=== PATIENT | female | born 1965 | race Caucasian/White ===

== ENCOUNTER 2024-04-26 09:08 | Emergency (ER) | payer MEDICARE ==
[2024-04-26 09:21] VITALS: TEMP 98.2
--- NOTE | 2024-04-26 09:29 | ERPHSYRPT ---
- History of Present Illness Time Seen by Provider: 04/26/24 09:26 Source: patient Exam Limitations: no limitations Patient Subjective Stated Complaint: Weakness Triage Nursing Assessment: Patient brought back to ED per w/c and transferred self to bed. Patient A+O X 3. Patient's skin pink, warm and dry. Patient complains of increased weakness over the past couple of days. Patient states she is also having abdominal pain mid abdomen 10/10 for the past 4 weeks with N/V. Physician History: 58-year-old female presents to our ED for evaluation of of nausea vomiting and generalized weakness for 1 day. Patient also complains of intermittent abdominal pain. Patient reports her pain is periumbilical. Pain is intermitte nt. Pain is rated 10 out of 10 at its worst. Patient states her pain is "a little" at this time. Pain has been intermittent for the past 4 weeks. Patient reports her nausea and vomiting x 1 day. No fever. No trauma no rash no diarrhea no urinary complaints. Patient otherwise feels well. She voices no other complaints or concerns at this time. Portions of this note were created with voice recognition technology. There may be grammatical, spelling, punctuation or sound alike errors Timing/Duration: yesterday Severity: moderate Modifying Factors: Improves With: nothing Associated Symptoms: denies symptoms Allergies/Adverse Reactions: No Known Drug Allergies Allergy (Verified 04/26/24 09:16) Home Medications: Levocetirizine Dihydrochloride 1 tab PO DAILY 11/14/22 [History] Lisinopril 10 mg [Zestril 10 MG] 1 tab PO BID 11/14/22 [History] Simvastatin 10 mg [Zocor 10MG] 1 tab PO HS 11/14/22 [History] Hx Tetanus, Diphtheria Vaccination/Date Given: Yes Hx Influenza Vaccination/Date Given: Yes Hx Pneumococcal Vaccination/Date Given: No Immunizations Up to Date: Yes Travel Risk - International Travel Have you traveled outside of the country in past 3 weeks: No - Emerging Infectious Disease Are you exhibiting symptoms associated with any current EIDs: No - Review of Systems Constitutional: No Symptoms, No Fever, No Chills Eyes: No Symptoms Ears, Nose, & Throat: No Symptoms Respiratory: No Symptoms, No Cough, No Dyspnea Cardiac: No Symptoms, No Chest Pain, No Edema, No Syncope Abdominal/Gastrointestinal: No Symptoms, No Abdominal Pain, No Nausea, No Vomiting, No Diarrhea Genitourinary Symptoms: No Symptoms, No Dysuria Musculoskeletal: No Symptoms, No Back Pain, No Neck Pain Skin: No Symptoms, No Rash Neurological: No Symptoms, No Dizziness, No Focal Weakness, No Sensory Changes Psychological: No Symptoms Endocrine: No Symptoms Hematologic/Lymphatic: No Symptoms Immunological/Allergic: No Symptoms All Other Systems: Reviewed and Negative - Past Medical History Pertinent Past Medical History: Yes Neurological History: No Pertinent History Cardiac History: Myocardial Infarction (DE) Respiratory History: No Pertinent History Endocrine Medical History: No Pertinent History Musculoskeletal History: Osteoarthritis Other Medical History: 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 - Past Surgical History Past Surgical History: No Neuro Surgical History: No Pertinent History Cardiac: No Pertinent History Respiratory: No Pertinent History Gastrointestinal: No Pertinent History Genitourinary: No Pertinent History Musculoskeletal: No Pertinent History Female Surgical History: No Pertinent History - Social History Smoking Status: Never smoker Exposure to second hand smoke: Yes Drug Use: none - Social Determinants of Health Will the patient participate in the screening: Yes Do you worry about a steady place to live?: No Do you have any problems with any of the following?: No known problems In the past 12 months,have you had to go without utilities?: No Transportation Issues: No Has anyone in your support network made you feel unsafe?: No Have you or anyone in your house had to go w/o enough food: No - Nursing Vital Signs Nursing Vital Signs: Initial Vital Signs Temperature 98.2 F 04/26/24 09:16 Pulse Rate 90 04/26/24 09:16 Respiratory Rate 20 04/26/24 09:16 Blood Pressure 132/101 04/26/24 09:16 O2 Sat by Pulse Oximetry 96 04/26/24 09:16 Pain Scale Pain Intensity 5 - Physical Exam General Appearance: no apparent distress, alert, other (BMI 54.7) Eye Exam: PERRL/EOMI, eyes nml inspection Ears, Nose, Throat Exam: normal ENT inspection, moist mucous membranes Neck Exam: normal inspection, non-tender, supple, full range of motion Respiratory Exam: normal breath sounds, lungs clear, airway intact, No respiratory distress Cardiovascular Exam: regular rate/rhythm, normal heart sounds, normal peripheral pulses Gastrointestinal/Abdomen Exam: soft, normal bowel sounds, other (Mild generalized abdominal pain), No tenderness, No mass Back Exam: normal inspection, normal range of motion, No CVA tenderness, No vertebral tenderness Extremity Exam: normal inspection, normal range of motion, pelvis stable, pedal edema Neurologic Exam: alert, oriented x 3, cooperative, normal mood/affect, nml cerebellar function, nml station & gait, sensation nml, No motor deficits Skin Exam: normal color, warm, dry, No rash Lymphatic Exam: No adenopathy SpO2 Interpretation: normal SpO2: 96 O2 Delivery: Room Air - Course Nursing assessment & vital signs reviewed: Yes EKG Interpreted by Me: RATE (153), A-fib, NORMAL AXIS, NORMAL INTERVALS, NORMAL QRS - Radiology Ultrasound Exam Gallbladder Ultrasound: tele radiology report (No acute findings) Ordered Tests: Active Orders 24 hr Category Date Time Status ACO Referral ONCE Care 04/26/24 13:56 Active Adoption Social Worker STAT Care 04/26/24 09:25 Active EKG-ER Only STAT Care 04/26/24 09:24 Active IV Insertion STAT Care 04/26/24 09:24 Active Pulse Oximetry (ED) STAT Care 04/26/24 09:24 Active ABDOMEN AND PELVIS W/0 CONTRAS [CT] Stat Exams 04/26/24 09:31 Completed GALLBLADDER [US] Stat Exams 04/26/24 12:02 Completed CBC W DIFF Stat Lab 04/26/24 09:39 Completed CMP Stat Lab 04/26/24 09:39 Completed CULTURE,URINE Stat Lab 04/26/24 10:19 Received LIPASE Stat Lab 04/26/24 09:39 Completed NT PRO BNPII Stat Lab 04/26/24 09:39 Completed TROPONIN Q4H Lab 04/26/24 09:39 Completed TROPONIN Q4H Lab 04/26/24 13:30 Completed TROPONIN Q4H Lab 04/26/24 17:30 Ordered UA W/RFX UR CULTURE Stat Lab 04/26/24 10:19 Completed Medication Summary Generic Name Dose Route Start Last Admin Trade Name Freq PRN Reason Stop Dose Admin Diltiazem HCl 100 mls @ 5 mls/hr 04/26/24 09:30 04/26/24 10:01 Cardizem Drip 100 Mg/100 Ml D5w IV 05/26/24 09:29 5 mg/hr .Q20H PRN 5 mls/hr HEART RATE/ A-FIB Administration Protocol 5 MG/HR Discontinued Medications Generic Name Dose Route Start Last Admin Trade Name Mpq PRN Reason Stop Dose Admin Diltiazem HCl 10 mg 04/26/24 09:30 04/26/24 09:38 Diltiazem Hcl Iv 5 Mg/Ml Vial IV 04/26/24 09:31 10 mg STAT ONE Administration Diltiazem HCl Confirm 04/26/24 09:38 Diltiazem Hcl Iv 5 Mg/Ml Vial Administered 04/26/24 09:39 Dose 50 mg IV .STK-MED ONE Enoxaparin Sodium 80 mg 04/26/24 14:09 Enoxaparin Sodium 80 Mg/0.8 Ml Syringe SQ 04/26/24 14:10 1XONLY ONE Furosemide 20 mg 04/26/24 12:04 Furosemide 20 Mg/Vial IV 04/26/24 12:05 ONCE STA Sodium Chloride 1,000 mls @ 999 mls/hr 04/26/24 09:24 04/26/24 10:58 Sodium Chloride 0.9% 1000 Ml IV 04/26/24 10:24 Infused .Q1H1M STA Infusion Sodium Chloride Confirm 04/26/24 09:30 Sodium Chloride 0.9% 1000 Ml Administered 04/26/24 09:31 Dose 1,000 mls @ ud .ROUTE .STK-MED ONE Ceftriaxone Sodium 1 gm in 100 mls @ 200 mls/hr 04/26/24 12:01 04/26/24 13:57 Rocephin 1 Gm / 100 Ml Nacl IV 04/26/24 12:30 Infused STAT ONE Infusion Ceftriaxone Sodium Confirm 04/26/24 13:10 Rocephin 1 Gm / 100 Ml Nacl Administered 04/26/24 13:11 Dose 1 gm in 100 mls @ ud IV .STK-MED ONE Lab/Rad Data: Laboratory Result Diagrams 04/26/24 09:39 04/26/24 09:39 Laboratory Results 04/26/24 04/26/24 04/26/24 Range/Units 13:30 12:20 10:19 WBC (3.98-10.04) x10^3/uL RBC (3.93-5.22) x10^6/uL Hgb (11.2-15.7) g/dL Hct (34.1-44.9) % MCV (79.4-94.8) fL MCH (25.6-32.2) pg MCHC (32.2-35.5) g/dL RDW (11.7-14.4) % Plt Count (182-369) x10^3/uL MPV (9.4-12.3) fL Gran % (34.0-71.1) % Immature Gran % (Auto) (0.001-0.429) % Nucleat RBC Rel Count (0.00-0.2) % Eos # (Auto) (0.04-0.36) x10^3/uL Immature Gran # (Auto) (0.001-0.031) x10^3u/L Absolute Lymphs (auto) (1.18-3.74) x10^3/uL Absolute Monos (auto) (0.24-0.86) x10^3/uL Absolute Nucleated RBC (0.00-0.012) x10^3u/L Lymphocytes % (19.3-51.7) % Monocytes % (4.7-12.5) % Eosinophils % (0.7-5.8) % Basophils % (0.1-1.2) % Absolute Granulocytes (1.56-6.13) x10^3/uL Basophils # (0.01-0.08) x10^3/uL Sodium (135-145) mmol/L Potassium (3.5-5.1) mmol/L Chloride (98-107) mmol/L Carbon Dioxide (22-30) mmol/L Anion Gap (5-15) MEQ/L BUN (7-17) mg/dL Creatinine (0.52-1.04) mg/dL Estimated GFR ML/MIN Glucose (74-106) mg/dL Calcium (8.4-10.2) mg/dL Total Bilirubin (0.2-1.3) mg/dL AST (14-36) U/L ALT (0-35) U/L Alkaline Phosphatase (38-126) U/L Troponin I 0.014 (0.000-0.033) ng/mL NT-Pro-B Natriuret Pep (<300) pg/mL Serum Total Protein (6.3-8.2) g/dL Albumin (3.5-5.0) g/dL Lipase (23-300) U/L Urine Color [place] A (Yellow) Urine Appearance Turbid A (Clear) Urine pH 5.0 (4.6-8.0) Ur Specific [place] 1.025 (1.005-1.030) Urine Protein 300 A (Negative) Urine Glucose (UA) Negative (Negative) mg/dL Urine Ketones Negative (Negative) Urine Blood Trace (Negative) Urine Nitrite Positive A (Negative) Urine Bilirubin Moderate A (Negative) Urine Urobilinogen 2.0 A (0.2) mg/dL Ur Leukocyte Esterase Small A (Negative) U Hyaline Cast (Auto) >50 A (0-2) /LPF Urine Microscopic RBC 3-5 (0-5) /HPF Urine Microscopic WBC 6-10 A (0-5) /HPF Ur Epithelial Cells Moderate A (None Seen) /HPF Urine Bacteria Moderate A (None Seen) /HPF Urine Culture Reflexed YES (NO) Digoxin (0.8-1.9) ng/mL Influenza Type A Ag NEGATIVE (NEGATIVE) Influenza Type B Ag NEGATIVE (NEGATIVE) RSV (PCR) NEGATIVE (NEGATIVE) SARS-CoV-2 (PCR) NEGATIVE (NEGATIVE) 04/26/24 04/26/24 04/26/24 Range/Units 09:39 09:39 09:39 WBC (3.98-10.04) x10^3/uL RBC (3.93-5.22) x10^6/uL Hgb (11.2-15.7) g/dL Hct (34.1-44.9) % MCV (79.4-94.8) fL MCH (25.6-32.2) pg MCHC (32.2-35.5) g/dL RDW (11.7-14.4) % Plt Count (182-369) x10^3/uL MPV (9.4-12.3) fL Gran % (34.0-71.1) % Immature Gran % (Auto) (0.001-0.429) % Nucleat RBC Rel Count (0.00-0.2) % Eos # (Auto) (0.04-0.36) x10^3/uL Immature Gran # (Auto) (0.001-0.031) x10^3u/L Absolute Lymphs (auto) (1.18-3.74) x10^3/uL Absolute Monos (auto) (0.24-0.86) x10^3/uL Absolute Nucleated RBC (0.00-0.012) x10^3u/L Lymphocytes % (19.3-51.7) % Monocytes % (4.7-12.5) % Eosinophils % (0.7-5.8) % Basophils % (0.1-1.2) % Absolute Granulocytes (1.56-6.13) x10^3/uL Basophils # (0.01-0.08) x10^3/uL Sodium 140 (135-145) mmol/L Potassium 3.5 (3.5-5.1) mmol/L Chloride 108 H (98-107) mmol/L Carbon Dioxide 17 L (22-30) mmol/L Anion Gap 19.4 H (5-15) MEQ/L BUN 11 (7-17) mg/dL Creatinine 0.94 (0.52-1.04) mg/dL Estimated GFR 70.8 ML/MIN Glucose 119 H (74-106) mg/dL Calcium 9.1 (8.4-10.2) mg/dL Total Bilirubin 4.40 H (0.2-1.3) mg/dL AST 71 H (14-36) U/L ALT 39 H (0-35) U/L Alkaline Phosphatase 67 (38-126) U/L Troponin I 0.012 (0.000-0.033) ng/mL NT-Pro-B Natriuret Pep 62155 (<300) pg/mL Serum Total Protein 7.2 (6.3-8.2) g/dL Albumin 3.8 (3.5-5.0) g/dL Lipase 17 L (23-300) U/L Urine Color (Yellow) Urine Appearance (Clear) Urine pH (4.6-8.0) Ur Specific [place] (1.005-1.030) Urine Protein (Negative) Urine Glucose (UA) (Negative) mg/dL Urine Ketones (Negative) Urine Blood (Negative) Urine Nitrite (Negative) Urine Bilirubin (Negative) Urine Urobilinogen (0.2) mg/dL Ur Leukocyte Esterase (Negative) U Hyaline Cast (Auto) (0-2) /LPF Urine Microscopic RBC (0-5) /HPF Urine Microscopic WBC (0-5) /HPF Ur Epithelial Cells (None Seen) /HPF Urine Bacteria (None Seen) /HPF Urine Culture Reflexed (NO) Digoxin < 0.4 L (0.8-1.9) ng/mL Influenza Type A Ag (NEGATIVE) Influenza Type B Ag (NEGATIVE) RSV (PCR) (NEGATIVE) SARS-CoV-2 (PCR) (NEGATIVE) 04/26/24 Range/Units 09:39 WBC 10.7 H (3.98-10.04) x10^3/uL RBC 5.03 (3.93-5.22) x10^6/uL Hgb 13.7 (11.2-15.7) g/dL Hct 42.0 (34.1-44.9) % MCV 83.5 (79.4-94.8) fL MCH 27.2 (25.6-32.2) pg MCHC 32.6 (32.2-35.5) g/dL RDW 16.6 H (11.7-14.4) % Plt Count 345 (182-369) x10^3/uL MPV 11.7 (9.4-12.3) fL Gran % 67.0 (34.0-71.1) % Immature Gran % (Auto) 0.4 (0.001-0.429) % Nucleat RBC Rel Count 0.0 (0.00-0.2) % Eos # (Auto) 0.08 (0.04-0.36) x10^3/uL Immature Gran # (Auto) 0.04 H (0.001-0.031) x10^3u/L Absolute Lymphs (auto) 2.36 (1.18-3.74) x10^3/uL Absolute Monos (auto) 0.97 H (0.24-0.86) x10^3/uL Absolute Nucleated RBC 0.00 (0.00-0.012) x10^3u/L Lymphocytes % 22.1 (19.3-51.7) % Monocytes % 9.1 (4.7-12.5) % Eosinophils % 0.7 (0.7-5.8) % Basophils % 0.7 (0.1-1.2) % Absolute Granulocytes 7.16 H (1.56-6.13) x10^3/uL Basophils # 0.08 (0.01-0.08) x10^3/uL Sodium (135-145) mmol/L Potassium (3.5-5.1) mmol/L Chloride (98-107) mmol/L Carbon Dioxide (22-30) mmol/L Anion Gap (5-15) MEQ/L BUN (7-17) mg/dL Creatinine (0.52-1.04) mg/dL Estimated GFR ML/MIN Glucose (74-106) mg/dL Calcium (8.4-10.2) mg/dL Total Bilirubin (0.2-1.3) mg/dL AST (14-36) U/L ALT (0-35) U/L Alkaline Phosphatase (38-126) U/L Troponin I (0.000-0.033) ng/mL NT-Pro-B Natriuret Pep (<300) pg/mL Serum Total Protein (6.3-8.2) g/dL Albumin (3.5-5.0) g/dL Lipase (23-300) U/L Urine Color (Yellow) Urine Appearance (Clear) Urine pH (4.6-8.0) Ur Specific [place] (1.005-1.030) Urine Protein (Negative) Urine Glucose (UA) (Negative) mg/dL Urine Ketones (Negative) Urine Blood (Negative) Urine Nitrite (Negative) Urine Bilirubin (Negative) Urine Urobilinogen (0.2) mg/dL Ur Leukocyte Esterase (Negative) U Hyaline Cast (Auto) (0-2) /LPF Urine Microscopic RBC (0-5) /HPF Urine Microscopic WBC (0-5) /HPF Ur Epithelial Cells (None Seen) /HPF Urine Bacteria (None Seen) /HPF Urine Culture Reflexed (NO) Digoxin (0.8-1.9) ng/mL Influenza Type A Ag (NEGATIVE) Influenza Type B Ag (NEGATIVE) RSV (PCR) (NEGATIVE) SARS-CoV-2 (PCR) (NEGATIVE) - Progress Progress: improved Progress Note: 04/26/24 12:09 No need for anticoagulation patient currently on digoxin and Xarelto. Dig level ordered. This is now known as we just received patient's medication list 04/26/24 14:10 Patient has not taken her Xarelto unknown amount of time. Patient received Lovenox SQ 04/26/24 14:11 58-year-old female presents to our ED for evaluation of some abdominal pain, nausea and vomiting. CT abdomen pelvis show incidental cardiomegaly, pulmonary congestion anasarca. BNP 12,000. Lasix administered. EKG reveals A-fib with RVR. Cardizem drip initiated. UA significant for urinary tract infection. We do not have an ICU bed available. We contacted [facility]. I spoke to Dr. Hathaway ER physician at [facility] who accepts transfer at 2:08 PM. Plan of care discussed with patient and mother who is at the bedside. They agree to transfer to [facility] for further evaluation and treatment. Portions of this note were created with voice recognition technology. There may be grammatical, spelling, punctuation or sound alike errors Complexity of problem addressed is moderate acute complicated. No critical care time. Complex of data reviewed and analyzed is extensive. Test ordered chest reviewed results analyzed and correlated clinically with history and physical exam. Risk of complication and or risk of morbidity/mortality of patient management is high. Patient requires transfer to higher level of care. Vital stable. Time spent to transfer patient is approximately 15 minutes. Plan of care established for shared decision making. No social determinants of health present to impede follow-up. Portions of this note were created with voice recognition technology. There may be grammatical, spelling, punctuation or sound alike errors 04/26/24 14:13 04/26/24 14:14 Counseled pt/family regarding: lab results, diagnosis - Departure Departure Disposition: Home Clinical Impression: Nausea and vomiting, Atrial fibrillation with RVR, UTI (urinary tract infection), Total bilirubin, elevated, Elevated brain natriuretic peptide (BNP) level, Cardiomegaly, CHF (congestive heart failure), Noncompliance with medication regimen, Anasarca Condition: Stable Critical Care Time: No Referrals: ADDIE JUAREZ [Primary Care Provider] - Follow up/PCP as directed Instructions: Heart Failure
[2024-04-26] MEDS ORDERED: Sodium Chloride 0.9% 1000 ML 1,000 ML ONE (09:30)
[2024-04-26] MEDS: Sodium Chloride 0.9% 1000 ML 1,000 ML IV STA (09:31)
[2024-04-26] MEDS: Cardizem IV 50 MG/10 ML IV ONE (09:38)
[2024-04-26] MEDS ORDERED: Cardizem IV 50 MG/10 ML IV ONE (09:38)
[2024-04-26 09:41] LABS: Absolute Neutrophil Ct (ANC) 7.16 x10^3/uL (1.56-6.13); BASOPHIL % 0.7 % (0.1-1.2); Basophil (Absolute #) 0.08 x10^3/uL (0.01-0.08); Eosinophil % 0.7 % (0.7-5.8); Eosinophil (Absolute #) 0.08 x10^3/uL (0.04-0.36); Hemoglobin 13.7 g/dL (11.2-15.7); IMMATURE GRAN # 0.04 x10^3u/L (0.001-0.031); IMMATURE GRAN % 0.4 % (0.001-0.429); Lymphocyte (Absolute #) 2.36 x10^3/uL (1.18-3.74); Lymphocytes % 22.1 % (19.3-51.7); Mean Cell Volume 83.5 fL (79.4-94.8); Mean Corpuscular Hemoglobin 27.2 pg (25.6-32.2); Mean Corpuscular Hgb Concent. 32.6 g/dL (32.2-35.5); Mean Platelet Volume 11.7 fL (9.4-12.3); Monocyte (Absolute #) 0.97 x10^3/uL (0.24-0.86); Monocytes % 9.1 % (4.7-12.5); Platelet Count 345 x10^3/uL (182-369); Red Blood Count 5.03 x10^6/uL (3.93-5.22); Red Cell Distribution Width 16.6 % (11.7-14.4); White Blood Count 10.7 x10^3/uL (3.98-10.04)
[2024-04-26] MEDS ORDERED: CARDIZEM DRIP 100 MG/100 ML D5W 100 ML IV ONE (09:41)
[2024-04-26] MEDS: CARDIZEM DRIP 100 MG/100 ML D5W 100 ML IV PRN (10:01)
[2024-04-26 11:14] LABS: Appearance Turbid (Clear); Bilirubin Moderate (Negative); Blood Trace (Negative); Epithelial Cells Moderate /HPF (None Seen); Glucose, Urine Negative (Negative); Hyaline Casts >50 /LPF (0-2); Ketones Negative (Negative); Leukocyte Esterase Small (Negative); Nitrite Positive (Negative); Protein,Urine Dip 300 (Negative); Specific Gravity 1.025 (1.005-1.030)
[2024-04-26 11:17] LABS: Bacteria Moderate /HPF (None Seen)
--- NOTE | 2024-04-26 11:28 | XRAY ---
Indication: Pain. Multiple contiguous axial images obtained through the abdomen and pelvis without contrast. Comparison: November 14, 2022 Lung bases again demonstrates minimal dependent atelectasis. Stable 7 mm right mid lung noncalcified nodule, probably benign. Heart remains enlarged. Mild diffuse respiration artifact. New mild diffuse anasarca. Noncontrasted stomach and bowel loops appear nonobstructed. Appendix not visualized. Again diffuse fatty liver. No free fluid/air. Remaining liver, gallbladder, pancreas, spleen, adrenal glands, kidneys, ureters, bladder, uterus, and aorta are unremarkable for noncontrast exam. Osseous structures intact. Impression: 1. Respiration artifact. 2. Again cardiomegaly with new diffuse anasarca. Rule out mild/early CHF versus fluid overload. 3. Stable right middle lobe probable benign noncalcified micronodule and fatty liver. 4. Remaining CT abdomen/pelvis without contrast exam is grossly negative.
[2024-04-26 11:33] LABS: ALBUMIN 3.8 g/dL (3.5-5.0); ANION GAP 19.4 MEQ/L (5-15); BILIRUBIN,TOTAL 4.4 mg/dL (0.2-1.3); Calcium 9.1 mg/dL (8.4-10.2); Creatinine 1 0.94 mg/dL (0.52-1.04); EST GLOMERULAR FILTRATION RATE 70.8 ML/MIN; Potassium 3.5 mmol/L (3.5-5.1); Total Protein 7.2 g/dL (6.3-8.2)
[2024-04-26 13:02] LABS: INFLUENZA A NEGATIVE (NEGATIVE); INFLUENZA B NEGATIVE (NEGATIVE); RESPIRATORY SYNCTIAL VIRUS NEGATIVE (NEGATIVE); SARS-CoV-2 Xpert Express NEGATIVE (NEGATIVE)
--- NOTE | 2024-04-26 13:02 | XRAY ---
Indication: Pain. Two-dimensional gallbladder sonogram performed. Comparison: None Sonogram was performed upright as patient refused lying for exam. Images limited. Pancreas obscured due to overlying bowel gas. Visualized gallbladder normally distended without gallstones, wall thickening, or pericholecystic fluid or common bile duct measures 2.1 mm. Right kidney measures 8.4 x 4.0 x 3.9 cm and sonographically unremarkable. Impression: Limited sonogram as detailed. Nonvisualization pancreas. Remaining gallbladder sonogram is grossly negative.
[2024-04-26] MEDS ORDERED: ROCEPHIN 1 GM / 100 ML NaCl 1 GM/100 ML IVPB IV ONE (13:10)
[2024-04-26] MEDS: ROCEPHIN 1 GM / 100 ML NaCl 1 GM/100 ML IVPB IV ONE (13:12)
[2024-04-26 14:06] VITALS: RESP 22
[2024-04-26] MEDS ORDERED: Lasix 20 MG/2 ML ONE (15:05)
[2024-04-26] MEDS ORDERED: ENOXAPARIN SODIUM SQ ONE (15:06)
[2024-04-26] MEDS: ENOXAPARIN SODIUM SQ ONE (15:08)
[2024-04-26] MEDS: Lasix 20 MG/2 ML IV STA (15:08)
[2024-04-26 15:11] VITALS: BP 125/105; PULSE 103; O2SAT 99
== END 2024-04-26 15:51 | disposition short-term general hospital (02) ==
LOC: ED 09:08
DX: R11.2 Nausea with vomiting, unspecified (principal); I48.20 Chronic atrial fibrillation, unspecified; N39.0 Urinary tract infection, site not specified; E80.6 Other disorders of bilirubin metabolism; R79.89 Other specified abnormal findings of blood chemistry; I51.7 Cardiomegaly; I50.9 Heart failure, unspecified; Z91.148 Patient's other noncompliance with medication regimen for other reason; R60.1 Generalized edema; R10.33 Periumbilical pain; Z79.899 Other long term (current) drug therapy
CPT/HCPCS: 0241U; 36415; 74176; 76705; 80053; 80162; 81001; 83690; 83880; 84484; 85025; 87077; 87086; 87186; 93005; 93041; 94760; 96361; 96365; 96375; 99291; 96374; 99285; J0696; J1650; J1940

== ENCOUNTER 2024-12-25 21:04 | Emergency (ER) | payer MEDICARE ==
[2024-12-25 21:35] LABS: BASOPHIL % 0.4 % (0.1-1.2); Basophil (Absolute #) 0.08 x10^3/uL (0.01-0.08); Eosinophil (Absolute #) 0.01 x10^3/uL (0.04-0.36); Hematocrit 45.5 % (34.1-44.9); Hemoglobin 15.3 g/dL (11.2-15.7); IMMATURE GRAN # 0.63 x10^3u/L (0.001-0.031); IMMATURE GRAN % 3.0 % (0.001-0.429); Lymphocyte (Absolute #) 0.98 x10^3/uL (1.18-3.74); Mean Corpuscular Hemoglobin 28.3 pg (25.6-32.2); Mean Corpuscular Hgb Concent. 33.6 g/dL (32.2-35.5); Monocyte (Absolute #) 1.62 x10^3/uL (0.24-0.86); NUCLEATED RBC # 0.00 x10^3u/L (0.00-0.012); NUCLEATED RBC % 0.0 % (0.00-0.2); Platelet Count 91 x10^3/uL (182-369); Red Blood Count 5.41 x10^6/uL (3.93-5.22); White Blood Count 20.9 x10^3/uL (3.98-10.04)
[2024-12-25 21:50] LABS: CK-Creatinine Phosphokinase 272.0 U/L (30-135); Calcium 8.6 mg/dL (8.4-10.2); Creatinine 1 4.86 mg/dL (0.52-1.04); EST GLOMERULAR FILTRATION RATE 9.8 ML/MIN; Glucose 174.0 mg/dL (74-106); Potassium 4.1 mmol/L (3.5-5.1); SGOT/AST 46.0 U/L (14-36); SGPT/ALT 29.0 U/L (0-35); Total Protein 7.3 g/dL (6.3-8.2)
[2024-12-25 21:57] LABS: Carbon Dioxide 14.0 mmol/L (22-30)
[2024-12-25 22:02] LABS: NT PRO BNPII 2060.0 pg/mL (<300)
[2024-12-25] MEDS ORDERED: PIPERACILLIN/TAZOBACTAM IV ONE (22:12)
[2024-12-25 22:26] LABS: TROPONIN 0.037 ng/mL (0.000-0.033)
--- NOTE | 2024-12-25 22:33 | ERPHSYRPT ---
- History of Present Illness Time Seen by Provider: 12/25/24 21:15 Source: patient Exam Limitations: other Patient Subjective Stated Complaint: "I fell and my foot hurts. I've been sick today and having diarrhea". Triage Nursing Assessment: Pt presents to ER by ambulance after experiencing a reported possible syncopal episode while having a diarrheal bowel movement. Syncope was not witnessed and pt does not quite recall what happened. Pt states she has had diarrhea today, pt's mother states she has had flu-like symptoms since Thursday. Pt has some severe skin issues, erythema, excoriation, sloughing noted to the face, under breasts, and in perineum and gluteal folds with some oozing blood noted in gluteal region. Pt has some subcutaneous bubbling on upper chest. Mother states she normally does not have red skin but she started to notice this on Thursday. Some discoloration noted to upper extremities as well. Pt is alert and oriented x 3. Respirations are easy and unlabored. Lung sounds clear and equal. States has had occasional dry cough. Complaining of 10/10 pain in right ankle. Ankle appears swollen with some deformity and tenderness. Physician History: Patient is here with syncopal episode after having a bowel movement earlier today. Patient has had diarrhea for the past 3 to 4 days. Patient does have a mental handicap and is not able to tell us the entire story. Also obtained history from mom and sister. Patient was having diarrhea today and had a syncopal episode. Flulike symptoms for the past 3 to 4 days as above. Patient complaining of right ankle pain. Patient does have erythema and excoriation around face, breast, perineum area. Some oozing wounds. However, no signs of necrotizing fasciitis. Per the mom this has been going on for a long time. And is not new with the illness. Patient mostly complaining of 10 out of 10 right ankle pain. Allergies/Adverse Reactions: No Known Drug Allergies Allergy (Verified 12/25/24 21:13) Home Medications: Simvastatin 10 mg [Zocor 10MG] 1 tab PO HS 11/14/22 [History] Amiodarone HCl 200 mg [Cordarone 200 MG] 200 mg PO DAILY 12/25/24 [History] Digoxin 125 mcg PO DAILY 12/25/24 [History] Furosemide 20 mg [Lasix 20 mg] 20 mg PO BID 12/25/24 [History] Levocetirizine Dihydrochloride 5 mg PO DAILY 12/25/24 [History] Metoprolol Succinate 25 mg Xl* [Toprol-Xl 25MG Tablets] 25 mg PO DAILY 12/25/24 [History] Potassium Citrate [Potassium Citrate ER] 10 meq PO DAILY 12/25/24 [History] Rivaroxaban 10 mg Tablet [Xarelto 10 mg Tablet] 20 mg PO HS 12/25/24 [History] Sacubitril/Valsartan [Entresto 24 mg-26 mg Tablet] 1 each PO BID 12/25/24 [History] Hx Tetanus, Diphtheria Vaccination/Date Given: Yes Hx Influenza Vaccination/Date Given: Yes Hx Pneumococcal Vaccination/Date Given: No Immunizations Up to Date: No Travel Risk - International Travel Have you traveled outside of the country in past 3 weeks: No - Emerging Infectious Disease Are you exhibiting symptoms associated with any current EIDs: No - Review of Systems All Other Systems: Unable due to condition - Past Medical History Pertinent Past Medical History: Yes Neurological History: No Pertinent History ENT History: No Pertinent History Cardiac History: Arrhythmia, Congestive Heart Failure, Myocardial Infarction (NH) Respiratory History: No Pertinent History Endocrine Medical History: Diabetes Type II Musculoskeletal History: Osteoarthritis GI Medical History: No Pertinent History History: No Pertinent History Psycho-Social History: No Pertinent History Female Reproductive Disorders: No Pertinent History 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 - Past Surgical History Past Surgical History: Yes Neuro Surgical History: No Pertinent History Cardiac: Cardiac Catheterization, Cardiac Stent, Pacemaker Respiratory: No Pertinent History Gastrointestinal: No Pertinent History Genitourinary: No Pertinent History Musculoskeletal: No Pertinent History Female Surgical History: No Pertinent History - Social History Smoking Status: Never smoker Exposure to second hand smoke: No Drug Use: none - Social Determinants of Health Will the patient participate in the screening: Yes Do you worry about a steady place to live?: No Do you have any problems with any of the following?: No known problems In the past 12 months,have you had to go without utilities?: No Transportation Issues: No Has anyone in your support network made you feel unsafe?: No Have you or anyone in your house had to go w/o enough food: No - Nursing Vital Signs Nursing Vital Signs: Initial Vital Signs Temperature 97.7 F 12/25/24 21:12 Pulse Rate 76 12/25/24 21:12 Respiratory Rate 22 12/25/24 21:12 Blood Pressure 93/32 12/25/24 21:12 O2 Sat by Pulse Oximetry 92 L 12/25/24 21:12 Pain Scale Pain Intensity 7 - Physical Exam SpO2 Interpretation: normal SpO2: 92 Comments: 12/25/24 22:29 Physical Exam Vitals signs and nursing note reviewed. Constitutional: Appearance: Patient is well-developed. HENT: Head: Normocephalic and atraumatic. Eyes: Conjunctiva/sclera: Conjunctivae normal. Neck: Trachea: No tracheal deviation. Cardiovascular: Rate and Rhythm: Normal rate. Pulmonary: Effort: Pulmonary effort is normal. No respiratory distress. Abdominal: Palpations: Abdomen is soft. Musculoskeletal: General: Right ankle tenderness, swelling, neurovascularly intact, 2+ pulses, 2+ cap refill Skin: General: Skin is warm and dry. Facial redness, skin excoriations, Neurological: Mental Status: Patient is alert and oriented to person, place, and time, behavior normal. Rectal exam performed with bedside nurse, Isabel Has severe excoriations over bilateral gluteal clefts, internal rectal exam was performed given some blood around the gluteal cleft. However no gross blood on insertion of digital rectal exam. No anal fissures, no hemorrhoids. - Course Nursing assessment & vital signs reviewed: Yes EKG Interpreted by Me: Sinus Rhythm (EKG is sinus rhythm, rate of 76, OK interval 211, QRS 111, QTc is 495, no STEMI or other ST changes) Ordered Tests: Active Orders 24 hr Category Date Time Status Document Imaging Manager STAT Care 12/25/24 21:18 Active EKG-ER Only STAT Care 12/25/24 21:18 Active IV Insertion STAT Care 12/25/24 21:18 Active ABDOMEN AND PELVIS W/0 CONTRAS [CT] Stat Exams 12/25/24 22:04 Completed ANKLE (3 VIEWS) Stat Exams 12/25/24 22:03 Completed CHEST WITHOUT CONTRAST [CT] Stat Exams 12/25/24 22:04 Completed HEAD WITHOUT CONTRAST [CT] Stat Exams 12/25/24 21:19 Completed BLOOD CULTURE Stat Lab 12/25/24 00:44 Received CBC W DIFF Stat Lab 12/25/24 21:29 Completed CK-Creatinine Phosphokinase Stat Lab 12/25/24 21:29 Completed CMP Stat Lab 12/25/24 21:29 Completed CULTURE,URINE Stat Lab 12/26/24 00:26 Received Lactic Acid Stat Lab 12/26/24 00:00 Completed Lactic Acid Stat Lab 12/26/24 00:47 Completed NT PRO BNPII Stat Lab 12/25/24 21:29 Completed Occult Blood-Fecal Screen (Diagnostic) [OB-FECAL SCREEN Lab 12/25/24 22:31 Completed ] Stat POCT GLUCOSE Stat Lab 12/25/24 21:24 Completed TROPONIN Q4H Lab 12/25/24 21:29 Completed TROPONIN Q4H Lab 12/26/24 00:44 Received TROPONIN Q4H Lab 12/26/24 05:30 Ordered UA W/RFX UR CULTURE Stat Lab 12/26/24 00:26 Completed Medication Summary Generic Name Dose Route Start Last Admin Trade Name Freq PRN Reason Stop Dose Admin Norepinephrine/Dextrose 8 mg in 250 mls @ 15 mls/hr 12/25/24 23:00 12/26/24 01:20 Norepinephrine 8 Mg/250 Ml-D5w IV 01/24/25 22:59 10 mcg/min .[id number] PRN 18.75 mls/hr HYPOTENSION Titration Protocol 8 MCG/MIN Discontinued Medications Generic Name Dose Route Start Last Admin Trade Name Freq PRN Reason Stop Dose Admin Acetaminophen 1,000 mg 12/25/24 23:44 12/25/24 23:45 Acetaminophen 500 Mg Tablet PO 12/25/24 23:45 1,000 mg STAT STA Administration Acetaminophen Confirm 12/25/24 23:45 Acetaminophen 500 Mg Tablet Administered 12/25/24 23:46 Dose 1,000 mg .ROUTE .STK-MED ONE Piperacillin Sod/Tazobactam 100 mls @ 200 mls/hr 12/25/24 21:50 12/25/24 22:55 Sod 4.5 gm/ Sodium Chloride IV 12/25/24 22:19 Infused STAT STA Infusion Sodium Chloride 1,000 mls @ 999 mls/hr 12/25/24 22:03 12/25/24 23:08 Sodium Chloride 0.9% 1000 Ml IV 12/25/24 23:03 Infused .Q1H1M STA Infusion Sodium Chloride Confirm 12/25/24 22:04 Sodium Chloride 0.9% 1000 Ml Administered 12/25/24 22:05 Dose 1,000 mls @ ud .ROUTE .STK-MED ONE Sodium Chloride Confirm 12/25/24 22:13 Sodium Chloride 0.9% Administered 12/25/24 22:14 Dose 100 mls @ ud .ROUTE .STK-MED ONE Sodium Chloride 1,000 mls @ 999 mls/hr 12/25/24 23:26 12/26/24 00:39 Sodium Chloride 0.9% 1000 Ml IV 12/26/24 00:26 Infused .Q1H1M STA Infusion Sodium Chloride Confirm 12/25/24 23:39 Sodium Chloride 0.9% 1000 Ml Administered 12/25/24 23:40 Dose 1,000 mls @ ud .ROUTE .STK-MED ONE Piperacillin Sod/Tazobactam Sod Confirm 12/25/24 22:12 Piperacillin/Tazobactam Sodium 4.5 Gm Vial Administered 12/25/24 22:13 Dose 4.5 gm IV .STK-MED ONE Lab/Rad Data: Laboratory Result Diagrams 12/25/24 21:29 12/25/24 21:29 Laboratory Results 12/26/24 12/26/24 12/26/24 Range/Units 00:47 00:26 00:00 WBC (3.98-10.04) x10^3/uL RBC (3.93-5.22) x10^6/uL Hgb (11.2-15.7) g/dL Hct (34.1-44.9) % MCV (79.4-94.8) fL MCH (25.6-32.2) pg MCHC (32.2-35.5) g/dL RDW (11.7-14.4) % Plt Count (182-369) x10^3/uL MPV (9.4-12.3) fL Gran % (34.0-71.1) % Immature Gran % (Auto) (0.001-0.429) % Nucleat RBC Rel Count (0.00-0.2) % Eos # (Auto) (0.04-0.36) x10^3/uL Immature Gran # (Auto) (0.001-0.031) x10^3u/L Absolute Lymphs (auto) (1.18-3.74) x10^3/uL Absolute Monos (auto) (0.24-0.86) x10^3/uL Absolute Nucleated RBC (0.00-0.012) x10^3u/L Lymphocytes % (19.3-51.7) % Monocytes % (4.7-12.5) % Eosinophils % (0.7-5.8) % Basophils % (0.1-1.2) % Absolute Granulocytes (1.56-6.13) x10^3/uL Basophils # (0.01-0.08) x10^3/uL Sodium (135-145) mmol/L Potassium (3.5-5.1) mmol/L Chloride (98-107) mmol/L Carbon Dioxide (22-30) mmol/L Anion Gap (5-15) MEQ/L BUN (7-17) mg/dL Creatinine (0.52-1.04) mg/dL Estimated GFR ML/MIN Glucose (74-106) mg/dL POC Glucometer (74 to 106) mg/dL Lactic Acid 1.7 2.7 H (0.4-2.0) Calcium (8.4-10.2) mg/dL Total Bilirubin (0.2-1.3) mg/dL AST (14-36) U/L ALT (0-35) U/L Alkaline Phosphatase (38-126) U/L Creatine Kinase (30-135) U/L Troponin I (0.000-0.033) ng/mL NT-Pro-B Natriuret Pep (<300) pg/mL Serum Total Protein (6.3-8.2) g/dL Albumin (3.5-5.0) g/dL Urine Color Dark Yellow A (Yellow) Urine Appearance Turbid A (Clear) Urine pH 5.0 (4.6-8.0) Ur Specific Switzer 1.020 (1.005-1.030) Urine Protein 100 A (Negative) Urine Glucose (UA) 100 A (Negative) mg/dL Urine Ketones Trace A (Negative) Urine Blood Small A (Negative) Urine Nitrite Negative (Negative) Urine Bilirubin Small A (Negative) Urine Urobilinogen 1.0 A (0.2) mg/dL Ur Leukocyte Esterase Small A (Negative) U Hyaline Cast (Auto) NONE SEEN (0-2) /LPF Urine Microscopic RBC 3-5 (0-5) /HPF Urine Microscopic WBC 6-10 A (0-5) /HPF Ur Epithelial Cells Moderate A (None Seen) /HPF Amorphous Crystals Moderate A (None Seen) /HPF Urine Bacteria Many A (None Seen) /HPF Urine Mucus Moderate A (NEGATIVE) /HPF Urine Culture Reflexed YES (NO) Stl Occult Blood (IFOB) (NEGATIVE) Influenza Type A Ag (NEGATIVE) Influenza Type B Ag (NEGATIVE) RSV (PCR) (NEGATIVE) SARS-CoV-2 (PCR) (NEGATIVE) Slides for Path Review 12/25/24 12/25/24 12/25/24 Range/Units 22:31 22:26 21:29 WBC (3.98-10.04) x10^3/uL RBC (3.93-5.22) x10^6/uL Hgb (11.2-15.7) g/dL Hct (34.1-44.9) % MCV (79.4-94.8) fL MCH (25.6-32.2) pg MCHC (32.2-35.5) g/dL RDW (11.7-14.4) % Plt Count (182-369) x10^3/uL MPV (9.4-12.3) fL Gran % (34.0-71.1) % Immature Gran % (Auto) (0.001-0.429) % Nucleat RBC Rel Count (0.00-0.2) % Eos # (Auto) (0.04-0.36) x10^3/uL Immature Gran # (Auto) (0.001-0.031) x10^3u/L Absolute Lymphs (auto) (1.18-3.74) x10^3/uL Absolute Monos (auto) (0.24-0.86) x10^3/uL Absolute Nucleated RBC (0.00-0.012) x10^3u/L Lymphocytes % (19.3-51.7) % Monocytes % (4.7-12.5) % Eosinophils % (0.7-5.8) % Basophils % (0.1-1.2) % Absolute Granulocytes (1.56-6.13) x10^3/uL Basophils # (0.01-0.08) x10^3/uL Sodium (135-145) mmol/L Potassium (3.5-5.1) mmol/L Chloride (98-107) mmol/L Carbon Dioxide (22-30) mmol/L Anion Gap (5-15) MEQ/L BUN (7-17) mg/dL Creatinine (0.52-1.04) mg/dL Estimated GFR ML/MIN Glucose (74-106) mg/dL POC Glucometer (74 to 106) mg/dL Lactic Acid (0.4-2.0) Calcium (8.4-10.2) mg/dL Total Bilirubin (0.2-1.3) mg/dL AST (14-36) U/L ALT (0-35) U/L Alkaline Phosphatase (38-126) U/L Creatine Kinase (30-135) U/L Troponin I 0.037 H* (0.000-0.033) ng/mL NT-Pro-B Natriuret Pep 2060 (<300) pg/mL Serum Total Protein (6.3-8.2) g/dL Albumin (3.5-5.0) g/dL Urine Color (Yellow) Urine Appearance (Clear) Urine pH (4.6-8.0) Ur Specific Switzer (1.005-1.030) Urine Protein (Negative) Urine Glucose (UA) (Negative) mg/dL Urine Ketones (Negative) Urine Blood (Negative) Urine Nitrite (Negative) Urine Bilirubin (Negative) Urine Urobilinogen (0.2) mg/dL Ur Leukocyte Esterase (Negative) U Hyaline Cast (Auto) (0-2) /LPF Urine Microscopic RBC (0-5) /HPF Urine Microscopic WBC (0-5) /HPF Ur Epithelial Cells (None Seen) /HPF Amorphous Crystals (None Seen) /HPF Urine Bacteria (None Seen) /HPF Urine Mucus (NEGATIVE) /HPF Urine Culture Reflexed (NO) Stl Occult Blood (IFOB) POSITIVE A (NEGATIVE) Influenza Type A Ag NEGATIVE (NEGATIVE) Influenza Type B Ag NEGATIVE (NEGATIVE) RSV (PCR) NEGATIVE (NEGATIVE) SARS-CoV-2 (PCR) NEGATIVE (NEGATIVE) Slides for Path Review 12/25/24 12/25/24 12/25/24 Range/Units 21:29 21:29 21:24 WBC 20.9 H (3.98-10.04) x10^3/uL RBC 5.41 H (3.93-5.22) x10^6/uL Hgb 15.3 (11.2-15.7) g/dL Hct 45.5 H (34.1-44.9) % MCV 84.1 (79.4-94.8) fL MCH 28.3 (25.6-32.2) pg MCHC 33.6 (32.2-35.5) g/dL RDW 13.6 (11.7-14.4) % Plt Count 91 L (182-369) x10^3/uL MPV 15.3 H (9.4-12.3) fL Gran % 84.2 H (34.0-71.1) % Immature Gran % (Auto) 3.0 H (0.001-0.429) % Nucleat RBC Rel Count 0.0 (0.00-0.2) % Eos # (Auto) 0.01 L (0.04-0.36) x10^3/uL Immature Gran # (Auto) 0.63 H (0.001-0.031) x10^3u/L Absolute Lymphs (auto) 0.98 L (1.18-3.74) x10^3/uL Absolute Monos (auto) 1.62 H (0.24-0.86) x10^3/uL Absolute Nucleated RBC 0.00 (0.00-0.012) x10^3u/L Lymphocytes % 4.7 L (19.3-51.7) % Monocytes % 7.7 (4.7-12.5) % Eosinophils % 0.0 L (0.7-5.8) % Basophils % 0.4 (0.1-1.2) % Absolute Granulocytes 17.60 H (1.56-6.13) x10^3/uL Basophils # 0.08 (0.01-0.08) x10^3/uL Sodium 126 L (135-145) mmol/L Potassium 4.1 (3.5-5.1) mmol/L Chloride 96 L (98-107) mmol/L Carbon Dioxide 14 L* (22-30) mmol/L Anion Gap 20.1 H (5-15) MEQ/L BUN 83 H (7-17) mg/dL Creatinine 4.86 H (0.52-1.04) mg/dL Estimated GFR 9.8 ML/MIN Glucose 174 H (74-106) mg/dL POC Glucometer 184 H (74 to 106) mg/dL Lactic Acid (0.4-2.0) Calcium 8.6 (8.4-10.2) mg/dL Total Bilirubin 1.00 (0.2-1.3) mg/dL AST 46 H (14-36) U/L ALT 29 (0-35) U/L Alkaline Phosphatase 130 H (38-126) U/L Creatine Kinase 272 H (30-135) U/L Troponin I (0.000-0.033) ng/mL NT-Pro-B Natriuret Pep (<300) pg/mL Serum Total Protein 7.3 (6.3-8.2) g/dL Albumin 3.5 (3.5-5.0) g/dL Urine Color (Yellow) Urine Appearance (Clear) Urine pH (4.6-8.0) Ur Specific Switzer (1.005-1.030) Urine Protein (Negative) Urine Glucose (UA) (Negative) mg/dL Urine Ketones (Negative) Urine Blood (Negative) Urine Nitrite (Negative) Urine Bilirubin (Negative) Urine Urobilinogen (0.2) mg/dL Ur Leukocyte Esterase (Negative) U Hyaline Cast (Auto) (0-2) /LPF Urine Microscopic RBC (0-5) /HPF Urine Microscopic WBC (0-5) /HPF Ur Epithelial Cells (None Seen) /HPF Amorphous Crystals (None Seen) /HPF Urine Bacteria (None Seen) /HPF Urine Mucus (NEGATIVE) /HPF Urine Culture Reflexed (NO) Stl Occult Blood (IFOB) (NEGATIVE) Influenza Type A Ag (NEGATIVE) Influenza Type B Ag (NEGATIVE) RSV (PCR) (NEGATIVE) SARS-CoV-2 (PCR) (NEGATIVE) Slides for Path Review Not Reportable - Progress Progress: improved Progress Note: 12/25/24 22:32 Differential diagnosis includes: PNA, STEMI, NSTEMI, other infection, musculoskeletal pain, pneumothorax, sepsis, GI bleed, other infection - We'll obtain basic labs, fluids, EKG, troponin - EKG shows no ST changes - my read - O2 saturations consistently greater than 95%. - Will obtain head CT, CT chest abdomen pelvis, no C-spine tenderness on exam, no step-offs no deformities. C-spine cleared clinically - Will need x-ray on right ankle. 12/25/24 23:01 Patient is persistently hypotensive despite 1 L fluid we will start Levophed. Patient does have a history of congestive heart failure. Therefore while she is likely septic, it will be a balance to ensure she is appropriately fluid resuscitated while knowing she has CHF. Patient has acute renal failure, creatinine at almost 5 with a baseline of less than 1 in our system. We did obtain a CT chest abdomen pelvis without contrast secondary to this. Head CT as well. These results are pending. Patient likely will need transfer to a higher level of care. Patient's initial troponin is also slightly bumped. We will do repeat troponins, continue to monitor closely. 12/25/24 23:50 XR of ankle: IMPRESSION: 1. Heterogeneous marrow of the right distal fibular shaft with an adjacent periosteal reaction, particularly along the medial cortical surface. 2. Moderate overlying soft tissue thickening is also noted. No definite fracture line is seen. Clinical evaluation and follow-up are further recommended to rule out an occult fracture or any underlying bony pathology. An MRI may prove further helpful in evaluation if clinically warranted. 3. Subtle cortical irregularity is noted along the anteromedial aspect of the distal tibial articular surface with minimal overlying soft tissue thickening. 4. A small bony chip noted along the medial malleolus is likely of benign etiology. Please correlate with clinical examination and the point of tenderness. 5. The ankle joint shows normal articular congruence. 6. A small calcaneal spur is present along the volar aspect. Patient has still not made urine, second liter of fluid is given, patient is still hypotensive, we will increase Levophed dose. Patient's family feels comfortable with patient being transferred given multitudes of illness. ED critical care statement As staff physician, I have provided critical care. Time: 54 mins Criteria for critical illness: Hypotensive shock secondary to sepsis, acute renal failure Treatment and management provided include: Coordination of management with ETC care team, consultants, and inpatient care team. [id number] assessment of condition and response to therapy. Review and interpretation of emergent diagnostic testing. Medical chart review and completion. Direction and immediate supervision of the following therapy: Critical care was time spent personally by me on the following activities: blood draw for specimens, development of treatment plan with patient or surrogate, discussions with consultants, discussions with primary provider, interpretation of cardiac output measurements, evaluation of patient's response to treatment, examination of patient, obtaining history from patient or surrogate, ordering and performing treatments and interventions, ordering and review of laboratory studies, ordering and review of radiographic studies, pulse oximetry, re-evaluation of patient's condition and review of old charts. This time was independent of all procedures performed. Odell Simpson 12/26/24 01:32 We initially attempted to transfer the patient to [facility]. However they are on bed capacity diversion. Therefore we did discuss over the phone with the [facility]. I was given a call by [facility] hospitalist, Dr. Tresa Tan. We discussed the case in detail. We went over all treatments thus far and developed a plan together. Plan for continued close ER observation. Patient was officially excepted to ICU at [facility]. Patient is looking improved at this point in time. Continue close monitoring. Counseled pt/family regarding: lab results, diagnosis, need for follow-up, rad results - Departure Clinical Impression: Leukocytosis, Hypotension, Acute renal failure Condition: Stable Critical Care Time: Yes Critical Care Time(excluding separately billable procedures): Critical 30-74 mins Referrals: ADDIE JUAREZ [Primary Care Provider, [facility]] - Follow up/PCP as directed
[2024-12-25 22:38] LABS: IFOB TEST RESULTS POSITIVE (NEGATIVE)
--- NOTE | 2024-12-25 23:04 | XRAY ---
CLINICAL HISTORY: dizzy COMPARISON: None. TECHNIQUE: Axial non-contrast CT scan of the brain was performed from the skull base to the high parietal region. One of the following dose reduction techniques was utilized for this exam: automated exposure control, adjustment of the mA and/or kV according to patient size, and use of iterative reconstruction. FINDINGS: Brain Parenchyma: Normal attenuation of the cerebral hemispheres, cerebellum, and brainstem. No evidence of acute infarct, hemorrhage, or mass effect. No abnormal areas of hypoattenuation or hyperattenuation. Ventricular System: The ventricles are normal in size and configuration. No evidence of hydrocephalus or ventricular enlargement. Subarachnoid Spaces: Prominent sulci and cisterns. No evidence of subarachnoid hemorrhage or extra-axial fluid collections. Cerebellum and Brainstem: No masses, lesions, or areas of abnormal density are identified. Orbits: Normal appearance of the globes, optic nerves, and extraocular muscles. No evidence of orbital masses or abnormal density. Sinuses: An air-fluid level is noted in the left maxillary sinus, suggestive of acute sinusitis. Mucosal thickening is noted in the right maxillary and both ethmoid air cells. The rest of the visualized sinuses are normally aerated. An incidental note is made of the right dhara bullosa. Leftward deviated nasal septum. Mastoid Air Cells: The mastoid air cells are clear. No evidence of mastoiditis. Skull: Normal skull morphology. IMPRESSION: 1. No area of acute infarction or hemorrhage is noted. 2. Mild age-appropriate senile atrophy. 3. Left maxillary sinusitis. Electronically Signed by: Levi Botello MD. (12/25/2024 23:02:54 EST)
[2024-12-25 23:07] LABS: INFLUENZA A NEGATIVE (NEGATIVE); INFLUENZA B NEGATIVE (NEGATIVE); RESPIRATORY SYNCTIAL VIRUS NEGATIVE (NEGATIVE); SARS-CoV-2 Xpert Express NEGATIVE (NEGATIVE)
[2024-12-25] MEDS ORDERED: NOREPINEPHRINE 8 MG/250 ML-D5W 8 MG/250 ML PLAST..BAG IV ONE (23:13)
[2024-12-25] MEDS: NOREPINEPHRINE 8 MG/250 ML-D5W 8 MG/250 ML PLAST..BAG IV PRN (23:16)
--- NOTE | 2024-12-25 23:30 | XRAY ---
CLINICAL HISTORY: pain/fall COMPARISON: None. TECHNIQUE: X-ray images of the right ankle were obtained in anteroposterior (AP), lateral, and mortise projections. FINDINGS: Bone Structure: Heterogeneous density of the right distal fibula is noted, with a periosteal reaction identified along the medial cortical surface of the distal fibula. Mild cortical irregularity is noted along the anteromedial aspect of the distal tibial articular surface, with minimal overlying soft tissue thickening. A small adjacent bony chip is noted on the oblique view, which appears to be of benign etiology. No definite fracture or dislocation is noted. Joint Spaces: Joint spaces are normal. There is no evidence of joint effusion or subluxation. Soft Tissues: Moderate soft tissue thickening is noted along the distal fibula and at the level of the ankle joint. No soft tissue calcifications or foreign bodies are noted. Additional Findings: A small calcaneal spur is noted along the volar aspect. No lytic or sclerotic lesions are seen. IMPRESSION: 1. Heterogeneous marrow of the right distal fibular shaft with an adjacent periosteal reaction, particularly along the medial cortical surface. 2. Moderate overlying soft tissue thickening is also noted. No definite fracture line is seen. Clinical evaluation and follow-up are further recommended to rule out an occult fracture or any underlying bony pathology. An MRI may prove further helpful in evaluation if clinically warranted. 3. Subtle cortical irregularity is noted along the anteromedial aspect of the distal tibial articular surface with minimal overlying soft tissue thickening. 4. A small bony chip noted along the medial malleolus is likely of benign etiology. Please correlate with clinical examination and the point of tenderness. 5. The ankle joint shows normal articular congruence. 6. A small calcaneal spur is present along the volar aspect. Disclaimer: A subtle bone abnormality or fracture may not be readily apparent on X-rays, thus clinical correlation and further imaging including follow-up CT, MRI, or follow-up X-rays are advised as needed. Electronically Signed by: Levi Botello MD. (12/25/2024 23:28:35 EST)
--- NOTE | 2024-12-25 23:38 | XRAY ---
CLINICAL HISTORY: fall COMPARISON: NONE TECHNIQUE: Contiguous axial CT images of the chest were acquired without administration of intravenous contrast. Coronal and sagittal reconstructions were obtained. One of the following dose reduction techniques was utilized for this exam: automated exposure control, adjustment of the mA and/or kV according to patient size, and use of iterative reconstruction. FINDINGS: Lungs: A few nodules are noted in both lungs, with a few of them showing internal cavitation. The index focal lesion in the right upper lobe measures 8.4 mm on image 25 of series 3. Gravitational changes are noted in both lower lobes. No definite consolidation is seen in either lung. No pleural effusion is seen on either side. Mediastinum: The mediastinum is normal in size and contour. No mediastinal mass or abnormal lymphadenopathy is seen. The heart size appears moderately enlarged. The cardiac pacemaker device is seen in situ. Hilar Structures: The hilar structures appear normal without enlargement or abnormality. No atheromatous calcifications of the aorta or coronary arteries are seen. Trachea and Main Bronchi: The trachea and main bronchi are patent without evidence of obstruction or abnormality. Chest Wall: The chest wall is unremarkable, with no evidence of soft tissue or bony abnormalities. Upper Abdomen: The visualized portions of the liver and spleen are unremarkable. The left adrenal gland appears bulky. The right adrenal gland is normally visualized in the acquired sections. Bones: No acute fracture line is seen. Mild degenerative changes are noted in the visualized thoracic spine. No lytic or sclerotic lesions are identified. IMPRESSION: Small nodules are identified in both lungs, with internal cavitation noted in a few of them, particularly on the right. This finding is more in favor of an acute infectious etiology rather than a post-traumatic injury. Please correlate with clinical history and examination. No definite consolidation or effusion is seen in either lung. The visualized skeleton shows mild degenerative changes. Electronically Signed by: Levi Botello MD. (12/25/2024 23:36:25 EST)
[2024-12-25] MEDS ORDERED: TYLENOL EXTRA STRENGTH 500 MG ONE (23:45)
[2024-12-25] MEDS: TYLENOL EXTRA STRENGTH 500 MG PO STA (23:45)
--- NOTE | 2024-12-25 23:52 | XRAY ---
CLINICAL HISTORY: fall COMPARISON: Comparison is made with previous imaging studies, dated 04/26/2024. TECHNIQUE: Non-contrast CT of the abdomen and pelvis was performed according to the following protocol: axial images, and reconstructed coronal and sagittal images. No intravenous contrast was administered. One of the following dose reduction techniques was utilized for this exam: automated exposure control, adjustment of the mA and/or kV according to patient size, and use of iterative reconstruction. FINDINGS: Cystic nodules are noted in the right lower lung lobe. Cardiomegaly is present. Cardiac pacemaker leads are visualized. Abdomen: Liver: The liver is enlarged, measuring approximately 22 cm, with decreased density. No focal lesions, cysts, or masses are identified. Gallbladder and Biliary System: The gallbladder is partially contracted, with hyperdensity seen at the gallbladder neck, likely representing a stone. The wall thickness is normal. No pericholecystic fluid is present. Pancreas: The pancreatic head, body, and tail are visualized and appear normal in size and density. No pancreatic masses or calcifications are noted. Spleen: The spleen is normal in size, shape, and density. No splenic lesions or masses are identified. Kidneys and Adrenal Glands: Both kidneys are normal in size, shape, and position. Cortical thickness is within normal limits. No renal calculi or hydronephrosis are seen. A left adrenal gland nodule, measuring approximately 11 x 11 mm, likely represents an adenoma. Appendix: The appendix is normal in size, without periappendiceal fat stranding and without an appendicolith. No evidence of appendiceal abscess or perforation is present. Bilateral fat-containing inguinal hernias are noted. Pelvis: Urinary Bladder: The urinary bladder is empty. Uterus: The uterus is normal in size and contour. No masses or abnormal thickening are present. Ovaries: The ovaries are not well visualized, but no gross abnormalities are noted. Vagina: The vagina is normal in contour and wall thickness. Cervix: No evidence of mass or abnormal thickening. Peritoneal and Retroperitoneal Structures: No free fluid or abnormal fluid collections are identified within the abdomen or pelvis. No lymphadenopathy is noted. Bowel: The visualized bowel loops are normal in caliber and appearance. No evidence of bowel obstruction or wall thickening is present. Bones and Soft Tissues: The pelvic bones and soft tissues are unremarkable. No fractures or abnormal masses are identified. Spondylitic changes are present in the lumbar vertebrae. IMPRESSION: 1. No evidence of acute intra-abdominal pathology. 2. Hepatomegaly with hepatic steatosis. Stable. 3. Hyperdensity seen at the gallbladder neck, likely stone; would recommend ultrasound of the abdomen for further evaluation if clinically warranted. Stable. 4. Left adrenal gland nodule, likely adenoma; would recommend CT with adrenal protocol for further evaluation if clinically warranted. Stable. 5. Bilateral fat-containing inguinal hernias. Stable. 6. Right lower lung lobe cystic nodules; for detailed description, please review CT chest study. Interval new finding. 7. No residual subcutaneous edema and fat stranding on the current study. Electronically Signed by: Levi Botello MD. (12/25/2024 23:51:41 EST)
[2024-12-26 00:58] LABS: Glucose, Urine 100 mg/dL (Negative); Protein,Urine Dip 100 (Negative)
[2024-12-26 01:10] LABS: Amourphous Crystal Moderate /HPF (None Seen)
[2024-12-26 02:09] VITALS: TEMP 99.1; O2SAT 94
[2024-12-26 02:36] LABS: Calcium 8.1 mg/dL (8.4-10.2); Creatinine 1 4.52 mg/dL (0.52-1.04); EST GLOMERULAR FILTRATION RATE 10.7 ML/MIN; Glucose 182.0 mg/dL (74-106); Potassium 3.6 mmol/L (3.5-5.1)
[2024-12-26 02:46] LABS: Carbon Dioxide 16.0 mmol/L (22-30)
[2024-12-26 03:09] VITALS: BP 101/52; PULSE 53; RESP 27
== END 2024-12-26 03:15 | disposition short-term general hospital (02) ==
LOC: ED 21:04
DX: A41.9 Sepsis, unspecified organism (principal); R65.21 Severe sepsis with septic shock; N17.9 Acute kidney failure, unspecified; D72.829 Elevated white blood cell count, unspecified; I95.9 Hypotension, unspecified; R55 Syncope and collapse; R19.7 Diarrhea, unspecified; M25.571 Pain in right ankle and joints of right foot; Z79.01 Long term (current) use of anticoagulants; Z79.899 Other long term (current) drug therapy
CPT/HCPCS: 36415; 51702; 70450; 71250; 73610; 74176; 80048; 80053; 81001; 82550; 82947; 83605; 83880; 84484; 85025; 87040; 87077; 87086; 87186; 87637; 93005; 93041; 96365; 96366; 99291; G0328